=== PATIENT | female | born 1980 | race Caucasian/White ===

== ENCOUNTER → 2019-07-17 | Outpatient (CLI) | payer BC ==
[2006-09-29 06:45] VITALS: PULSE 77; TEMP 98
[~2019-07-17] MED LIST: LEVOTHYROXINE0.05 MG PO
== END ==
LOC: COL.RAD 07:03
DX: M79.89 Other specified soft tissue disorders (principal)

== ENCOUNTER → 2022-05-27 | Outpatient (CLI) | payer BC ==
[2006-09-29 06:45] VITALS: TEMP 98
== END ==
LOC: MC.RAD 08:40
DX: Z12.31 Encounter for screening mammogram for malignant neoplasm of breast (principal); N63.10 Unspecified lump in the right breast, unspecified quadrant; N63.20 Unspecified lump in the left breast, unspecified quadrant

== ENCOUNTER → 2022-06-01 | Outpatient (CLI) | payer BC ==
[2006-09-29 06:45] VITALS: TEMP 98
== END ==
LOC: MC.RAD 13:57
DX: N63.10 Unspecified lump in the right breast, unspecified quadrant (principal); N63.20 Unspecified lump in the left breast, unspecified quadrant

== ENCOUNTER → 2022-06-02 | Outpatient (CLI) | payer BC ==
[2006-09-29 06:45] VITALS: TEMP 98
== END ==
LOC: MC.RAD 10:00
DX: N63.11 Unspecified lump in the right breast, upper outer quadrant (principal); N63.20 Unspecified lump in the left breast, unspecified quadrant
CPT/HCPCS: A4648

== ENCOUNTER 2024-05-30 08:07 | Day surgery (SDC) | payer BC ==
[~2024-05-30] VITALS: Ht 166.4 cm; Wt 105.3 kg
[~2024-05-30 08:07] MED LIST changes: +LR 1,000 ML IV SCH; +Ondansetron 4 MG/2 ML VIAL IV PRN
[2024-05-30] MEDS ORDERED: CELEXA 20MG20 MG/TAB PO (08:47)
[2024-05-30] MEDS ORDERED: TIROSINT125 MC1 PO (08:47)
[2024-05-30] MEDS ORDERED: FERROUSGLUC256MG PO (08:48)
[2024-05-30] MEDS ORDERED: OSCAL 500 TAB500 MG PO (08:49)
[2024-05-30] MEDS ORDERED: B12 PO (08:50)
[2024-05-30 09:03] VITALS: BP 124/84; PULSE 80; TEMP 96.8
[2024-05-30 10:40] VITALS: BP 115/82; PULSE 68; TEMP 96.9
--- NOTE | 2024-05-30 10:40 | NUR ---
PATIENT AMBULATED TO CHAIR WITH STEADY GAIT, ASSIST OF 2. ALERT AND AWAKE. DENIES PAIN, NAUSEA AND SHORTNESS OF BREATH. BREATHING REGULAR AND UNLABORED ON ROOM AIR. SKIN WARM AND DRY. IV IN PLACE. NURSE HANDOFF COMPLETED IN ROOM. SEE CHART FOR VITAL SIGNS. PATIENT HAD WATER, ORANGE JUICE AND A MUFFIN. BOTH FOOD AND DRINK TOLERATED WELL. CALL LIGHT IN REACH. SPOUSE, NAN, AND DAUGHTER PRESENT IN ROOM.
[2024-05-30 10:45] VITALS: BP 135/74; PULSE 64
[2024-05-30 11:00] VITALS: BP 129/83; PULSE 68
--- NOTE | 2024-05-30 11:25 | NUR ---
1042: MET WITH PATIENT AND FAMILY IN ROOM TO DISCUSS PROCEDURE. 1110: DISCHARGE TEACHING COMPLETED WITH PRINTED EDUCATION AND INSTRUCTIONS SENT HOME WITH PATIENT. PATIENT VERBALIZED UNDERSTANDING OF TEACHING. 1112: IV REMOVED. GAUZE AND COBAN PLACED OVER SITE. 1125: PATIENT DISCHARGED HOME WITH [facility] TRANSPORT.
== END 2024-05-30 11:25 | disposition home or self-care (01) ==
LOC: SDCO 08:07
DX: Z12.11 Encounter for screening for malignant neoplasm of colon (principal); K62.1 Rectal polyp
CPT/HCPCS: J2704; J7120

== ENCOUNTER → 2024-06-23 | Outpatient (CLI) | payer BC ==
[2006-09-29 06:45] VITALS: BP 122/66; PULSE 77; TEMP 98
[~2024-06-23] MED LIST changes: +B12 PO; +CELEXA 20MG20 MG/TAB PO; +FERROUSGLUC256MG PO; -LR 1,000 ML IV SCH; +OSCAL 500 TAB500 MG PO; -Ondansetron 4 MG/2 ML VIAL IV PRN; +TIROSINT125 MC1 PO
== END ==
LOC: MC.RAD 07:00
DX: Z12.31 Encounter for screening mammogram for malignant neoplasm of breast (principal)